=== PATIENT | male | born 1980 | race African-American/Black ===

== ENCOUNTER 2018-08-07 13:51 | Emergency (ER) | payer OTHER ==
[2018-08-07 14:01] VITALS: BP 127/77
[2018-08-07 15:21] LABS: BASOPHILS # (AUTO) 0.1 10^3/uL (0.0-0.1); EOSINOPHILS # (AUTO) 0.2 10^3/uL (0.0-0.7); EOSINOPHILS % (AUTO) 2.5 %; HGB - HEMOGLOBIN 13.7 g/dL (14.0-18.0); LYMPHOCYTES # (AUTO) 1.3 10^3/uL (1.5-3.5); LYMPHOCYTES % (AUTO) 18.2 %; MEAN CORPUSCULAR HEMOGLOBIN 24.4 pg (27.0-31.0); MEAN CORPUSCULAR HGB CONC 31.8 g/dL (32.0-36.0); MEAN CORPUSCULAR VOLUME 76.7 fL (80.0-94.0); MEAN PLATELET VOLUME 9.6 fL (7.4-11.4); MONOCYTES # (AUTO) 0.5 10^3/uL (0.0-1.0); MONOCYTES % (AUTO) 7.4 %; NEUTROPHILS # (AUTO) 5.2 10^3/uL (1.5-6.6); NEUTROPHILS % (AUTO) 70.9 %; PLT - PLATELET COUNT 199 10^3/uL (130-450); RED BLOOD COUNT 5.64 10^6/uL (4.70-6.10); RED CELL DISTRIBUTION WIDTH 12.9 % (12.0-15.0); WHITE BLOOD COUNT 7.3 x10^3/uL (4.8-10.8)
[2018-08-07 15:30] LABS: ALBUMIN 4.9 g/dL (3.2-5.5); ALBUMIN/GLOBULIN RATIO 1.5 (1.0-2.2); BILIRUBIN,TOTAL 0.6 mg/dL (0.2-1.0); CALCIUM 9.2 mg/dL (8.5-10.3); CREATININE 1.3 mg/dL (0.6-1.2); TOTAL PROTEIN 8.2 g/dL (6.7-8.2)
--- NOTE | 2018-08-07 16:43 | ED Physician Documentation ---
PD HPI ABD PAIN - Stated complaint Stated Complaint: R SIDE PX - Chief complaint Chief Complaint: Abd Pain - History obtained from History obtained from: Patient, Family - History of Present Illness Timing - onset: How many days ago (3) Timing - duration: Days (3) Timing - details: Gradual onset, Still present Quality: Sharp, Pain Location: RUQ Improved by: Laying still Worsened by: Moving, Breathing, Position, Palpation. 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 He has developed right upper quadrant abdominal pain about 3 days ago. He states that as long as he does not move around his pain is 0. When he goes to try to move, sit up, bend, sneeze, laugh or cough the pain is excruciating. He has pain to push on this area as well. He denies any change with eating and he denies any change in his bowel or bladder habit. He has not had a fever. He has not had nausea or vomiting. He does not recall any injury to the area. He does do some weight lifting but does not recall injuring himself weightlifting. He has been doing his PRT and does not recall injuring himself during that workup. Review of Systems Constitutional: denies: Fever, Chills Eyes: denies: Decreased vision Ears: denies: Ear pain Nose: denies: Congestion Throat: denies: Sore throat Cardiac: denies: Chest pain / pressure, Palpitations Respiratory: denies: Dyspnea, Cough, Wheezing GI: reports: Abdominal Pain. denies: Abdominal Swelling, Nausea, Vomiting, Constipation, Diarrhea : denies: Dysuria, Frequency Skin: denies: Rash Musculoskeletal: reports: Back pain. denies: Neck pain, Extremity pain Neurologic: denies: Generalized weakness, Focal weakness, Numbness PD PAST MEDICAL HISTORY - Past Medical History Past Medical History: No - Past Surgical History Past Surgical History: No - Present Medications Home Medications: Ambulatory Orders Medication Instructions Recorded Confirmed Ibuprofen [Motrin] 800 mg PO Q8H PRN #30 tablet 08/07/18 - Allergies Allergies/Adverse Reactions: Allergies Allergy/AdvReac Type Severity Reaction Status Date / Time No Known Drug Allergies Allergy Verified 08/07/18 14:01 - Social History Does the pt smoke?: No Smoking Status: Never smoker Does the pt drink ETOH?: Yes Does the pt have substance abuse?: No - Immunizations Immunizations are current?: Yes PD ED PE NORMAL - Vitals Vital signs reviewed: Yes (normal ) - General General: Alert and oriented X 3, No acute distress, Well developed/nourished - HEENT HEENT: Atraumatic, PERRL, EOMI - Neck Neck: Supple, no meningeal sign, No bony TTP - Cardiac Cardiac: RRR, No murmur - Respiratory Respiratory: No respiratory distress, Clear bilaterally - Abdomen Abdomen: Normal bowel sounds, Soft, Non distended, No organomegaly, Other (There is specific right upper quadrant tenderness. There is arrest of breathing with deep breathing. There is no tenderness over the ribs. 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2 Baso # (Auto) 0.1 Absolute Nucleated RBC 0.01 Nucleated RBC % 0.1 Sodium 135 Potassium 3.8 Chloride 97 L Carbon Dioxide 29 Anion Gap 9.0 BUN 15 Creatinine 1.3 H Estimated GFR (MDRD) 76 L Glucose 96 Calcium 9.2 Total Bilirubin 0.6 AST 31 ALT 25 Alkaline Phosphatase 59 Total Protein 8.2 Albumin 4.9 Globulin 3.3 Albumin/Globulin Ratio 1.5 Lipase 33 - Rads (name of study) ultrasound abd lmt Radiology: Prelim report reviewed (Impression: Normal. No cholelithiasis or cholecystitis.), EMP read indepedently, See rad report Procedures - Bedside sono Bedside sono by EMP: With the use of bedside ultrasound the right kidney is imaged it is sonographically nontender and there is no evidence of hydronephrosis. The right upper quadrant is ultrasounded the area is tender in general but I am unable to adequately visualize the gallbladder. PD MEDICAL DECISION MAKING - ED course Complexity details: reviewed results, re-evaluated patient, considered differential, d/w patient, d/w family ED course: 37-year-old male recently moved to the area having done a significant amount of work to move here has now developed right upper quadrant abdominal pain. His pain is exacerbated by movement and palpation and he has no pain when he is not using the muscles at all. He does have pain that is obvious and visible with any movement that he makes. I suspect this is a an abdominal wall strain and the only portion of this that is not closed is what the injury was. We did suzanne ge the patient's gallbladder and did some blood work these were all unremarkable studies. I discussed with the patient pain control with use of ibuprofen and time to recover about 14 days. Departure - Departure Disposition: 01 Home, Self Care Clinical Impression: Abdominal wall strain Qualifiers: Encounter type: initial encounter Qualified Code(s): S39.011A - Strain of muscle, fascia and tendon of abdomen, initial encounter Instructions: ED Strain Abdominal Muscle Follow-Up: [facility] [Provider Group] Prescriptions: Ibuprofen [Motrin] 800 mg PO Q8H PRN #30 tablet PRN Reason: PAIN &/OR FEVER
--- NOTE | 2018-08-07 16:46 | Ultrasound Report ---
Reason: RUQ pain Procedure Date: 08/07/2018 Accession Number: [id number] / [id number] Procedure: US - Abdomen Limited CPT Code: FULL RESULT: EXAM: ABDOMEN ULTRASOUND LIMITED, RUQ EXAM DATE: 08/07/2018 04:23 PM. CLINICAL HISTORY: Right upper quadrant and periumbilical pain. COMPARISON: None. TECHNIQUE: Real-time scanning was performed with static images obtained. FINDINGS: Liver: Normal in size and echotexture. 15.2 cm. Main portal vein flow: Hepatopetal. Gallbladder: Normal. No stones, wall thickening, or sonographic Locke's sign. Biliary System: CBD measures 4 mm. No intrahepatic or extrahepatic ductal dilatation. Other: The visualized pancreas and right kidney are unremarkable. No free fluid. No periumbilical abnormality is identified. IMPRESSION: Normal. No cholelithiasis or cholecystitis. RADIA
== END 2018-08-07 17:02 | disposition home or self-care (01) ==
LOC: ED 13:51
DX: S39.011A Strain of muscle, fascia and tendon of abdomen, initial encounter (principal); X58.XXXA Exposure to other specified factors, initial encounter
CPT/HCPCS: 36415; 76705; 80053; 83690; 85025; 99283

== ENCOUNTER 2018-08-17 20:23 | Emergency (ER) | payer OTHER ==
[2018-08-17 20:32] VITALS: BP 158/64
--- NOTE | 2018-08-17 21:16 | ED Physician Documentation ---
PD HPI URI - Stated complaint Stated Complaint: GONZALEZ/FEVER/BILAT KNEE PX - Chief complaint Chief Complaint: Heent - History obtained from History obtained from: Patient - History of Present Illness Timing - onset: How many days ago (few days of not feeling well, with initially some upper abd cramping and nausea. That has improved but not completely better. Now with onset yesterday of some left neck pain, headaches, nausea and some vomiting.) Associated symptoms: Fever, Chills. No: Nasal congestion, Rhinorrhea, Sore throat, Swollen nodes, Productive cough Contributing factors: Travel. No: Sick contact Improves by: No: Medication Worsened by: Activity Similar symptoms before: Work up / diagnostics, Has not had sx before Recently seen: Not recently seen Review of Systems Constitutional: reports: Fever (today) Nose: reports: Congestion. denies: Rhinorrhea / runny nose Throat: denies: Dental pain / toothache, Oral lesions / sores, Sore throat Cardiac: denies: Chest pain / pressure, Palpitations Respiratory: denies: Dyspnea GI: reports: Abdominal Swelling, Nausea. denies: Abdominal Pain, Diarrhea Musculoskeletal: denies: Neck pain, Back pain PD PAST MEDICAL HISTORY - Past Medical History Cardiovascular: None Respiratory: None Neuro: Cerebral palsy - Past Surgical History Past Surgical History: No - Present Medications Home Medications: Ambulatory Orders Medication Instructions Recorded Confirmed Ibuprofen [Motrin] 800 mg PO Q8H PRN #30 tablet 08/07/18 - Allergies Allergies/Adverse Reactions: Allergies Allergy/AdvReac Type Severity Reaction Status Date / Time No Known Drug Allergies Allergy Verified 08/17/18 20:32 - Social History Does the pt smoke?: No Smoking Status: Never smoker Does the pt drink ETOH?: Yes Does the pt have substance abuse?: No - Immunizations Immunizations are current?: Yes PD ED PE NORMAL - General General: Alert and oriented X 3 - HEENT HEENT: Atraumatic, Pharynx benign, Dentition benign - Neck Neck: Supple, no meningeal sign, No bony TTP, No adenopathy Results - Vitals Vitals: Oxygen O2 Source Room air - Labs Labs: Laboratory Tests 08/17/18 08/17/18 08/17/18 21:55 21:55 21:55 WBC 9.0 RBC 5.07 Hgb 12.2 L Hct 39.0 L MCV 76.9 L MCH 24.1 L MCHC 31.3 L RDW 12.7 Plt Count 252 MPV 7.9 Neut # (Auto) 6.2 Lymph # (Auto) 1.7 [place] # (Auto) 0.8 Eos # (Auto) 0.1 Baso # (Auto) 0.2 H Absolute Nucleated RBC 0.01 Nucleated RBC % 0.1 Sodium 135 Potassium 4.0 Chloride 100 L Carbon Dioxide 27 Anion Gap 8.0 BUN 18 Creatinine 1.4 H Estimated GFR (MDRD) 70 L Glucose 108 H Calcium 9.1 Total Bilirubin 0.5 AST 22 ALT 19 Alkaline Phosphatase 62 Total Protein 8.0 Albumin 4.4 Globulin 3.6 Albumin/Globulin Ratio 1.2 Lipase 39 Urine Color Urine Clarity Urine pH Ur Specific [place] Urine Protein Urine Glucose (UA) Urine Ketones Urine Occult Blood Urine Nitrite Urine Bilirubin Urine Urobilinogen Ur Leukocyte Esterase Ur Microscopic Review Urine Culture Comments Influenza A (Rapid) Negative Influenza B (Rapid) Negative 08/17/18 22:08 WBC RBC Hgb Hct MCV MCH MCHC RDW Plt Count MPV Neut # (Auto) Lymph # (Auto) [place] # (Auto) Eos # (Auto) Baso # (Auto) Absolute Nucleated RBC Nucleated RBC % Sodium Potassium Chloride Carbon Dioxide Anion Gap BUN Creatinine Estimated GFR (MDRD) Glucose Calcium Total Bilirubin AST ALT Alkaline Phosphatase Total Protein Albumin Globulin Albumin/Globulin Ratio Lipase Urine Color YELLOW Urine Clarity CLEAR Urine pH 6.0 Ur Specific [place] 1.020 Urine Protein NEGATIVE Urine Glucose (UA) NEGATIVE Urine Ketones NEGATIVE Urine Occult Blood NEGATIVE Urine Nitrite NEGATIVE Urine Bilirubin NEGATIVE Urine Urobilinogen 0.2 (NORMAL) Ur Leukocyte Esterase NEGATIVE Ur Microscopic Review NOT INDICATED Urine Culture Comments NOT INDICATED Influenza A (Rapid) Influenza B (Rapid) Departure - Departure Disposition: 01 Home, Self Care Clinical Impression: Fever Qualifiers: Fever type: unspecified Qualified Code(s): R50.9 - Fever, unspecified Arthralgia Qualifiers: Joint pain location: knee Laterality: bilateral Qualified Code(s): M25.561 - Pain in right knee; M25.562 - Pain in left knee Condition: Stable Record reviewed to determine appropriate education?: Yes Instructions: ED Fever Unconf Cause Comments: Drink lots of fluids. Tylenol or ibuprofen if needed for fevers or pains. At this point you do not look like you have a severe infection. Your flu test is negative. Your urine test is negative. Your blood count does not show an elevation of the white count and your liver and kidney functions are normal. I presume it is an onset of a viral type illness. See how you do over the next couple of days. Return if worsening or new symptoms develop. Discharge Date/Time: 08/17/18 22:44
[2018-08-17 22:04] LABS: BASOPHILS # (AUTO) 0.2 10^3/uL (0.0-0.1); BASOPHILS % (AUTO) 1.7 %; EOSINOPHILS # (AUTO) 0.1 10^3/uL (0.0-0.7); EOSINOPHILS % (AUTO) 1.3 %; HGB - HEMOGLOBIN 12.2 g/dL (14.0-18.0); LYMPHOCYTES # (AUTO) 1.7 10^3/uL (1.5-3.5); LYMPHOCYTES % (AUTO) 19.1 %; MEAN CORPUSCULAR HEMOGLOBIN 24.1 pg (27.0-31.0); MEAN CORPUSCULAR HGB CONC 31.3 g/dL (32.0-36.0); MEAN CORPUSCULAR VOLUME 76.9 fL (80.0-94.0); MEAN PLATELET VOLUME 7.9 fL (7.4-11.4); MONOCYTES # (AUTO) 0.8 10^3/uL (0.0-1.0); MONOCYTES % (AUTO) 9.3 %; NEUTROPHILS # (AUTO) 6.2 10^3/uL (1.5-6.6); NEUTROPHILS % (AUTO) 68.6 %; PLT - PLATELET COUNT 252 10^3/uL (130-450); RED BLOOD COUNT 5.07 10^6/uL (4.70-6.10); RED CELL DISTRIBUTION WIDTH 12.7 % (12.0-15.0)
[2018-08-17 22:15] LABS: ALBUMIN 4.4 g/dL (3.2-5.5); ALBUMIN/GLOBULIN RATIO 1.2 (1.0-2.2); BILIRUBIN,TOTAL 0.5 mg/dL (0.2-1.0); CALCIUM 9.1 mg/dL (8.5-10.3); CREATININE 1.4 mg/dL (0.6-1.2)
[2018-08-17 22:19] LABS: BILIRUBIN,URINE NEGATIVE (NEGATIVE); GLUCOSE, URINE (UA) NEGATIVE (NEGATIVE); KETONES,URINE (UA) NEGATIVE (NEGATIVE); LEUKOCYTE ESTERASE, URINE NEGATIVE (NEGATIVE); NITRITE,URINE NEGATIVE (NEGATIVE); OCCULT BLOOD,URINE NEGATIVE (NEGATIVE); PROTEIN,URINE NEGATIVE (NEGATIVE); UROBILINOGEN,URINE 0.2 (NORMAL) E.U./dL (NORMAL)
[2018-08-17 22:20] LABS: CLARITY,URINE CLEAR (CLEAR)
== END 2018-08-17 22:44 | disposition home or self-care (01) ==
LOC: ED 20:23
DX: R50.9 Fever, unspecified (principal); M25.561 Pain in right knee; G80.9 Cerebral palsy, unspecified
CPT/HCPCS: 36415; 80053; 81001; 81003; 83690; 85025; 87086; 87275; 87276; 99283